=== PATIENT | female | born 1980 | race Caucasian/White ===

== ENCOUNTER → 2022-02-18 13:18 | Outpatient (CLI) | payer OTHER, SELFPAY ==
--- NOTE | ~2022-02-18 | US_ITS ---
US axilla LT 02/18/2022 14:01 Indication: Left axillary swelling Procedure: High-resolution Limited ultrasound of the left axilla Comparison: No prior studies for comparison. Findings: There are normal left axillary lymph nodes, largest measuring 9 mm maximum dimension. No rowan spicious masses to suggest malignancy. No abnormal fluid collections. Impression: 1: No significant abnormality of the left axilla. Reviewed, dictated and finalized at location A. Impression: 1: No significant abnormality of the left axilla.
== END ==
PROVIDERS: PCP Internal Medicine; Visit Provider Internal Medicine
DX: R22.2 Localized swelling, mass and lump, trunk (principal)
CPT/HCPCS: 76882

== ENCOUNTER → 2022-04-10 09:38 | Outpatient (CLI) | payer OTHER, SELFPAY ==
--- NOTE | ~2022-04-10 | CT_ITS ---
EXAMINATION:CT diagnostic chest wo con DATE: 04/10/2022 09:56 INDICATION: Mediastinal mass. TECHNIQUE: Computed tomography (CT) of the chest was performed without intravenous contrast. Automate d exposure control and iterative reconstruction technique were employed. The dose-length product (DLP ) was 132.88 mGy-cm. COMPARISON: None. FINDINGS: The lungs demonstrate minimal atelectasis. No pleural effusion. There is a small volume of residual thymus in the anterior mediastinum. The heart size is normal. No pericardial effusion. There is a prominent aortic recess of the pericardium. There is mild thoracic spondylosis. IMPRESSION: 1. No abnormal mediastinal mass. Reviewed, dictated and finalized at location A. T STUFFER
== END ==
PROVIDERS: PCP Internal Medicine; Visit Provider Internal Medicine
DX: R22.2 Localized swelling, mass and lump, trunk (principal)
CPT/HCPCS: 71250

== ENCOUNTER 2023-02-07 15:56 | Outpatient (CLI) | payer OTHER, SELFPAY ==
--- NOTE | ~2023-02-07 | MM_ITS ---
EXAMINATION: MM screening mattie BI w darek HISTORY: Screening mammogram TECHNIQUE: Craniocaudal and mediolateral oblique 3-D tomosynthesis images were obtained and synthetic 2-D images were generated. CAD analysis was submitted and interpreted. COMPARISON: No prior mammogram is available for comparison at this institution. BREAST PARENCHYMAL COMPOSITION: The breasts are heterogeneously dense, which may obscure small masses . FINDINGS: There is no evidence of suspicious mass, calcification, or architectural distortion to sugg est malignancy in either breast. IMPRESSION: 1. No mammographic evidence of malignancy. 2. Recommend routine screening mammography in one year. BI-RADS Category 1: Negative Reviewed, dictated and finalized at location A.
== END 2023-02-07 15:57 | disposition home or self-care (01) ==
PROVIDERS: PCP Internal Medicine; Visit Provider Nurse Practitioner Obstetrics & Gynecology
DX: Z12.31 Encounter for screening mammogram for malignant neoplasm of breast (principal)
CPT/HCPCS: 77063; 77067

== ENCOUNTER 2023-05-06 03:22 | Day surgery (SDC) | payer OTHER, SELFPAY ==
[2023-04-30 10:44] VITALS: BMI 21.9
--- NOTE | 2023-04-30 10:51 | PC.NURSE ---
Report to the Outpatient Waiting Room, entrance under the green pavilion located off [facility], at time 1100 on date 05/06/23. Planned Procedure Time: 1300. Time changes happen often and if your time is changed the preop area will call you the afternoon before. - You and your visitor will be asked to self-screen and do not enter if you have any COVID symptoms. - A mask is optional within the hospital at this time. Patients may have clear liquids (water, carbonated beverages, clear teas, apple juice) until 3 hours prior to surgery with a maximum of 20 ounces. - No food from midnight until time of surgery Take the following medications with a SIP of water the morning of surgery: N/A DO NOT STOP ANY OF YOUR OTHER PRESCRIPTION MEDICATIONS PRIOR TO SURGERY ?EXCEPT THE FOLLOWING Medications to discontinue per physician: N/A Date to take last dose: N/A Please no make-up, nail maltese, hairspray, perfume, deodorant, or body powder the day of surgery. No jewelry (including any body piercings) or valuables the day of surgery, leave them at home. Please take a shower or bath the night before, or the morning of, surgery with an antibacterial soap. Wear comfortable, loose fitting clothing. - Jewelry must be removed prior to entering the operating room. Rings and piercings that are not removed may be cut off. - The hospital will not accept responsibility for valuables. - Please leave all valuables, including medications, at home the day of surgery. If you are going home after surgery, a licensed reach lift truck driver must drive you home. - NO public transportation without another adult if you receive anesthesia. - We recommend that an adult stay with you for 24 hours following discharge. - We also recommend that you do not drive, make important decision, drink alcoholic beverages, or take any drugs that were not prescribed by your health care provider for at least 24 hours after your discharge time. Follow any additional instructions given to you from your surgeon. If you or anyone in your household have experienced Covid symptoms in the past week, please notify your surgeon or the nurse liaison at the phone number below for possible testing. Telephone instructions given to PT Angelica CLARKE and asked if any additional questions and then verbalized understanding. Patient advised to call surgeon office or pre surgery nurse liaison [phone] if any additional questions.
[2023-05-06] VITALS (10 sets, daily range): BP systolic 96–127; BP diastolic 55–86; PULSE 70–97; RESP 10–17; TEMP 36.3–37; O2SAT 95–100
[2023-05-06] MEDS: LACTATED RINGERS 1,000 ML 30 ML IV CONT ×2 (10:06→13:27)
--- NOTE | 2023-05-06 11:15 | WPDHPUPDATE1 ---
History and Physical Update Update Date/Time: 05/06/23 11:15 History and Physical has been reviewed, including an updated exam of the patient. There are NO changes in the patient's condition. Risks, benefits, and alternatives have been discussed and questions answered. Patient agrees to proceed with procedure.
--- NOTE | 2023-05-06 11:15 | W.PM.PROC2 ---
Procedure Note - Detailed Date of Procedure 05/06/23 Pre-op Diagnosis Micromastia Post-op Diagnosis Same Procedure Performed Bilateral augmentation mammaplasty Surgeon Jamey Renee MD Anesthesia General Findings Bilateral Jac Jackson Smooth Cohesive Right: REF# [id number] SN [id number] Left: REF# [id number] SN [id number] Description of Procedure She is here today for bilateral breast augmentation. Previously and again today the risks, benefits, alternatives were discussed in extensive detail. I wanted her to be very realistic about the risks involved as well as expectations. We discussed aftercare and what to monitor for. Made sure answered all of her questions to her satisfaction today and consent was obtained. Marked in the preoperative holding area with their verification. The patient was taken to the operating room placed supine on the operating table. Anesthesia was provided by anesthesiology. A surgical time-out was taken. We cleansed the skin and 1% lidocaine and 0.25% Marcaine with epinephrine was used anesthetize as a field block. She was prepped and draped in a standard sterile fashion. Tegaderm nipple Zazueta were placed. A 15 blade used to make an incision along the inframammary fold. Dissection was continued at 45 degree angle until the chest wall as identified. I incised the pectoralis major along its inferior border and completely released the inferior border leaving the medial border intact. I created a subpectoral pocket in the appropriate dimensions based on our preoperative planning for the implant. I then copiously irrigated with saline solution and verified a strict hemostasis. Next the use a triple antibiotic and Betadine containing solution to irrigate the pocket. I washed my gloves with the triple antibiotic and Betadine solution. We washed the implant immediately upon opening it with this solution and only opened it when we needed it. I used implant funnel and no-touch technique. The implant was introduced into the pocket using the funnel. Having verified positioning of the implant this was closed using 2-0 PDS followed by 3-0 Monocryl in a running subcuticular 4-0 Monocryl followed by tissue glue. Fluffs and surgical bra were placed. Patient was awoke and taken to PACU without difficulty. All instrument sponge counts were correct at the end of the case. Estimated Blood Loss 25 Drains No Packing No Pathology None sent Complications No immediate complications Condition Stable Disposition PACU
[2023-05-06] MEDS: SCOPOLAMINE 1.5 MG PATCH TRANSDERM (11:18)
--- NOTE | 2023-05-06 12:17 | WPDANESEPP ---
Anes - Eval Pre Procedure Procedure: Operation Date: 05/06/23 11:30 Proposed Procedures p Bilateral Breast Augmentation - Jamey Renee MD Date/Time: 05/06/23 12:17 Pre Op Diagnosis: Micromastia Patient Data Age: 42 Gender: F Height: 1.57 m Weight: 53.3 kg Last Vital Signs Temp 37.0 C 05/06/23 11:03 Pulse 86 05/06/23 11:03 Resp 16 05/06/23 11:03 BP 96/55 L 05/06/23 11:03 Pulse Ox 100 05/06/23 11:03 O2 Del Method Room Air 05/06/23 11:03 Allergies Allergy/AdvReac Type Severity Reaction Status Date / Time No Known Allergies Allergy Verified 05/06/23 09:34 Home Medications Medication Instructions Recorded Confirmed Type No Home Medications 04/30/23 04/30/23 History Patient hx anesthesia problems: none Family hx anesthesia problems: none Results Review: All pre-operative results and documents have been reviewed as part of the pre-operative evaluation. [facility] Social History Social History Smoking packs per day: 1 Smoking cigarettes per day: 20.0 Years smoked: 12 Smoking pack-years: 12.00 Smoking status: Current some day smoker Tobacco type: cigarettes and e-cigarettes/vaping Additional smoking assessment comments: QUIT CIGARETTES JULY 2020, NOW VAPING OCCASIONALLY Alcohol intake: never Substance use: never Substance use type: does not use Living arrangements: with family Spiritual care concerns: No Exam Day of Procedure 05/06/23 12:17 Patient weight: normal Heart: regular rate and rhythm Lungs: clear to auscultation and normal air movement Airway: Mallampati scale class 1 Neurological: alert and oriented
[2023-05-06] MEDS: NACL 0.9% IRRIG POUR BOTTLE 900 ML, GENTAMICIN SULFATE INJ 160 MG, ceFAZolin 2 GM, POVI... IRRIGATION (12:25)
[2023-05-06] MEDS: BUPivacaine HCL 0.25% PF 30 ML VIAL INFILTRATE (12:25)
[2023-05-06] MEDS: LIDO 1%/EPINEPHRINE 1:100,000 50 ML VIAL 30 ML INFILTRATE (12:25)
[2023-05-06] MEDS: ceFAZolin 2 GM/D5W 50 ML 2 GM/50 ML BAG IVPB (12:25)
[2023-05-06] MEDS: TRANEXAMIC ACID 1,000MG/ISO100 1,000 MG/100 ML BAG 200 MG IVPB (12:30)
[2023-05-06] MEDS: fentaNYL CITRATE INJ (*CRX) 100 MCG/2 ML VIAL 25 MCG IV PUSH ×8 (13:40→14:03)
[2023-05-06] MEDS: HYDROmorphone HCL INJ (*CRX) 1 MG/ML SYR 0.5 MG IV PUSH ×3 (14:17→14:42)
[2023-05-06] MEDS: oxyCODONE HCL (*CRX) 5 MG TAB IR PO (14:38)
== END 2023-05-06 15:45 | disposition home or self-care (01) ==
PROVIDERS: PCP Internal Medicine; Visit Provider Surgery Plastic and Reconstructive Surgery
PROC: (CPT 19325; principal; 2023-05-06 11:30)
DX: Z41.1 Encounter for cosmetic surgery (principal); F17.290 Nicotine dependence, other tobacco product, uncomplicated
CPT/HCPCS: 19325; A9270; J0690; J1100; J1170; J1580; J2250; J2405; J2704; J3010; J7120

== ENCOUNTER 2023-12-16 20:11 | Emergency (ER) | payer OTHER, SELFPAY ==
[2023-12-16 20:25] VITALS: BP 108/67; PULSE 84; RESP 15; TEMP 36.7; O2SAT 100
[2023-12-16 21:13] LABS: Strep Group A RT-PCR NOT DETECTED (Negative)
[2023-12-16 21:24] LABS: Influenza A QL RT-PCR Negative (Negative); Influenza B QL RT-PCR Negative (Negative); RSV RNA, RT-PCR Negative (Negative); SARS-CoV-2 RNA PCR Negative (Negative)
--- NOTE | 2023-12-16 22:15 | PC.NURSE ---
2210-PATIENT STATES SHE FEELS JUST AWFUL AND WANTS TO GO HOME. PATIENT WAS INSTRUCTED TO RETURN AT ANYTIME BUT WAS ENCOURAGED TO WAIT FOR PROVIDER. PATIENT DECLINED AND LEFT.
== END 2023-12-16 22:30 | disposition left against medical advice (07) ==
LOC: ANHED 22:21
PROVIDERS: Emergency Provider Emergency Medicine; PCP Internal Medicine
DX: R51.9 Headache, unspecified (principal)
CPT/HCPCS: 87637; 87651; 99199